=== PATIENT | female | born 1990 | race American Indian/Alaskan Native ===

== ENCOUNTER 2020-04-16 15:26 | Emergency (ER) | payer MEDICAID ==
[2020-04-16 17:26] LABS: Basophils # (Auto) 0.1 K/mm3 (0.0-0.1); Basophils % (Auto) 0.7 % (0.0-1.8); Eosinophils # (Auto) 0.5 K/mm3 (0.0-0.4); Hematocrit 42.9 % (30.3-42.9); Hemoglobin 14.1 gm/dl (10.1-14.3); Lymphocytes # (Auto) 4.2 K/mm3 (1.2-5.4); Lymphocytes % (Auto) 34.8 % (13.4-35.0); Mean Corpuscular HGB Conc 33 % (30-34); Mean Corpuscular Volume 86 fl (79-97); Monocytes # (Auto) 1.2 K/mm3 (0.0-0.8); Monocytes % (Auto) 9.9 % (0.0-7.3); Platelet Count 338 K/mm3 (140-440); Red Blood Count 4.99 M/mm3 (3.65-5.03); Red Cell Distribution Width 15.9 % (13.2-15.2)
[2020-04-16 17:29] LABS: Alanine Aminotransferase 55 units/L (7-56); Albumin 4.7 g/dL (3.9-5); BUN/Creatinine Ratio 11; Blood Urea Nitrogen 8 mg/dL (7-17); Calcium 10.1 mg/dL (8.4-10.2); Hemolysis Index 85
[2020-04-16] MEDS ORDERED: SODIUM CHLORIDE 0.9% 1000 ML 1,000 ML IV ONE ×2 (17:47→18:25)
[2020-04-16] MEDS ORDERED: LORazepam 2 MG/ML VIAL IV ONE (17:47)
[2020-04-16] MEDS ORDERED: ZIPRASIDONE MESYLATE 20 MG VIAL IM ONE (19:14)
[2020-04-16] MEDS ORDERED: WATER FOR INJ Sterile (PF) 10 ML ONE (19:36)
[2020-04-16 21:02] LABS: Bacteria,Urine 4+ /HPF (Negative); Bilirubin,Urine NEG (Negative); Blood,Urine SM (Negative); Color,Urine Yellow (Yellow); Mucus,Urine 3+ /HPF; Protein,Urine <15 mg/dL mg/dL (Negative); Urobilinogen,Urine < 2.0 mg/dL (<2.0)
[2020-04-16 21:08] LABS: Benzodiazepines Screen,Urine PRESUMPTIVE NEGATIVE; Cannabinoid Screen,Urine PRESUMPTIVE NEGATIVE; Cocaine Screen,Urine PRESUMPTIVE NEGATIVE; Methadone Screen,Urine PRESUMPTIVE NEGATIVE; Opiate Screen,Urine PRESUMPTIVE NEGATIVE
[2020-04-16 21:20] LABS: Amphetamine Screen,Urine PRESUMPTIVE POSITIVE
[2020-04-17] MEDS ORDERED: SODIUM CHLORIDE 0.9% 1000 ML 2,000 ML IV ONE (01:24)
[2020-04-17] MEDS: NITROFURANTOIN MONOHYD/M-CRYST 100 MG CAP PO SCH ×3 (02:05→21:11)
[2020-04-17] MEDS ORDERED: ZIPRASIDONE MESYLATE 20 MG VIAL IM ONE (10:15)
[2020-04-17] MEDS ORDERED: LORazepam 2 MG/ML VIAL IM ONE (10:16)
[2020-04-17] MEDS ORDERED: WATER FOR INJ Sterile (PF) 10 ML ONE (10:26)
[2020-04-18] MEDS: NITROFURANTOIN MONOHYD/M-CRYST 100 MG CAP PO SCH (07:57)
[2020-04-18 09:05] VITALS: BP 127/97
== END 2020-04-18 09:08 | disposition home or self-care (01) ==
LOC: EEVIPCON 15:26 → ED 15:26
DX: F15.10 Other stimulant abuse, uncomplicated (principal); R74.8 Abnormal levels of other serum enzymes; R82.71 Bacteriuria; E86.0 Dehydration; F17.200 Nicotine dependence, unspecified, uncomplicated; F14.90 Cocaine use, unspecified, uncomplicated; Z79.899 Other long term (current) drug therapy
CPT/HCPCS: 36415; 71045; 80053; 80307; 81001; 82550; 83735; 84703; 85025; 93005; 96361; 96372; 96374; 99285; J2060; J3486; J7030; 80320; G0480